=== PATIENT | male | born 1975 | race Caucasian/White ===

== ENCOUNTER 2023-06-14 17:42 | Emergency (ER) | payer SELFPAY ==
[~2023-06-14] VITALS: Ht 177.8 cm; Wt 105.0 kg
[2023-06-14 17:50] VITALS: O2SAT 99
[2023-06-14 20:10] LABS: BASOPHILS % 0.2 % (0.0-2.0); EOSINOPHILS % 0.4 % (0.0-5.0); HEMATOCRIT. 44.5 % (42.0-52.0); LYMPHOCYTES % 12.4 % (20.0-50.0); MEAN CORPUSCULAR HGB CONC 33.6 g/dL (31.0-37.0); MEAN CORPUSCULAR VOLUME 83.4 fL (80.0-94.0); MEAN PLATELET VOLUME 8.5 fl (7.4-10.4); PLATELET 202 x1000/uL (130-400); RED BLOOD CELL COUNT 5.34 mill/uL (4.7-6.1); WHITE BLOOD COUNT 11.7 x1000/uL (4.5-11.0)
[2023-06-14 20:24] LABS: ALANINE AMINOTRANSFERASE 43 IU/L (10-49); ALBUMIN 4.6 g/dL (3.2-4.8); ASPARTATE AMINOTRANSFERASE 28 IU/L (<34); BILIRUBIN TOTAL 0.5 mg/dL (0.1-1.0); CALCIUM 9.1 mg/dL (8.7-10.4); CARBON DIOXIDE 24 mEq/L (21-32); CHLORIDE 106 mEq/L (98-107); GLUCOSE 104 mg/dL (70-105); POTASSIUM 3.8 mEq/L (3.5-5.1); PROTEIN TOTAL 7.3 g/dL (6.0-8.3); SODIUM 138 mEq/L (136-145); UREA NITROGEN BLOOD 22 mg/dL (9-23)
[2023-06-14 20:29] LABS: TROPONIN I HIGH SENSITIVITY < 4 ng/L (3.0-53)
[2023-06-14 22:36] LABS: TROPONIN I HIGH SENSITIVITY < 4 ng/L (3.0-53)
[2023-06-15 01:49] VITALS: TEMP 100.4
[2023-06-15] MEDS: ACETAMINOPHEN 325MG TABLET PO NR (01:49)
[2023-06-15] MEDS: CEFTRIAXONE SODIUM 1G VIAL IM NR (01:49)
[2023-06-15] MEDS: LIDOCAINE HCL 1% 20ML VIAL (Pyxis) INJ INFIL NR (01:49)
[2023-06-15 01:52] VITALS: BP 145/84; PULSE 96; RESP 15
== END 2023-06-15 01:54 | disposition home or self-care (01) ==
LOC: ER 17:42
DX: R42 Dizziness and giddiness (principal); I10 Essential (primary) hypertension; F19.90 Other psychoactive substance use, unspecified, uncomplicated
CPT/HCPCS: 80053; 83690; 85025; 84484; 36415; 71045; 93005; 99285; 96372; J0696; J3490; Z7610